=== PATIENT | male | born 1990 | race Caucasian/White ===

== ENCOUNTER 2022-10-18 09:23 | Day surgery (SDC) | payer BC ==
[~2022-10-18] VITALS: Ht 190.5 cm; Wt 104.5 kg
[2022-10-18 09:33] VITALS: BP 134/85
[2022-10-18] MEDS ORDERED: NO HOME MEDS (10:05)
[2022-10-18] MEDS ORDERED: MIDAZolam 1 MG/ML 5ML VIAL ONE (10:09)
[2022-10-18] MEDS ORDERED: fentaNYL/PF 50MCG/1 ML 2ML syringe ONE (10:09)
[2022-10-18] MEDS ORDERED: LIDOcaine Viscous 15ml cup ONE (10:09)
[2022-10-18] MEDS ORDERED: diphenhydrAMINE 50 mg/ml inj ONE (10:09)
[2022-10-18 10:34] VITALS: BP 133/86
[2022-10-18 10:44] VITALS: BP 140/84
[2022-10-18 10:54] VITALS: BP 139/73
[2022-10-18 11:04] VITALS: BP 148/76
== END 2022-10-18 11:25 | disposition home or self-care (01) ==
LOC: GI LAB 09:23
PROVIDERS: ATTEND Internal Medicine Gastroenterology
DX: R12 Heartburn (principal); K21.00 Gastro-esophageal reflux disease with esophagitis, without bleeding; K29.00 Acute gastritis without bleeding
CPT/HCPCS: 43239; 99152; J2250; J3010; J7030; Z7512; A4620; J1200